=== PATIENT | male | born 2000 | race Caucasian/White ===

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

== ENCOUNTER 2022-03-06 20:52 | Emergency (ER) | payer OTHER ==
[2022-03-06 21:14] VITALS: BP 106/67; PULSE 73; RESP 18; TEMP 98.3; BMI 17.6
[2022-03-06] MEDS ORDERED: KETOROLAC TROMETHAMINE 30 MG/1 ML VIAL IM ONE (21:56)
[2022-03-06] MEDS ORDERED: KETOROLAC TROMETHAMINE 30 MG/1 ML VIAL ONE (22:03)
== END 2022-03-06 22:15 | disposition home or self-care (01) ==
LOC: JERFT 20:52
PROC: 3E023GC Introduction of Other Therapeutic Substance into Muscle, Percutaneous Approach (ICD-10-PCS; principal; 2022-03-06)
DX: M79.602 Pain in left arm (principal)
CPT/HCPCS: 73060-TC-LT-FY; 99284-25

== ENCOUNTER 2022-05-02 21:20 | Emergency (ER) | payer OTHER ==
[2022-05-02 21:33] VITALS: BP 128/77; PULSE 95; RESP 18; TEMP 97.8; BMI 17.6
[2022-05-02] MEDS ORDERED: IBUPROFEN 600 MG TABLET (FP) PO ONE ×2 (23:12→23:16)
== END 2022-05-02 23:23 | disposition home or self-care (01) ==
LOC: FER 21:20
DX: S39.012A Strain of muscle, fascia and tendon of lower back, initial encounter (principal); V49.40XA Driver injured in collision with unspecified motor vehicles in traffic accident, initial encounter
CPT/HCPCS: 99283-25